=== PATIENT | female | born 1945 | race Caucasian/White ===

== ENCOUNTER → 2016-09-28 | Outpatient (CLI) | payer OTHER, MEDICARE ==
[~2016-09-28] MED LIST: GADOBUTROL 10 ML VIAL IVP ONE
--- NOTE | 2016-09-28 18:01 | MR ---
MRI Lumbar Spine Without and With IV Contrast dated September 28, 2016 Indication: Pain. Previous fusion. Comparison: MRI lumbar spine dated December 09, 2015 and lumbar spine flexion-extension series dated Aug. Technique: Sagittal T2, T1, STIR, and T1 postcontrast fat suppression. Stacked axial T2 and T1 withou t and with contrast sequences are obtained from T12 through S1. 4 mL of Gadavist was uneventfully int ravenously administered. The dose was reduced by Dr. Locke, given the patient's calculated GFR of 4 4. Findings: The lumbar spine is anatomically aligned. Diskogenic Modic changes at the L2-L3 level poste riorly have increased. The L3-L4 and L4-L5 vertebral bodies appear to be at least partially osseous f used. The left unilateral posterior fusion construct extending from L3 to L5 results in minimal artif act of the neural foramen. No postoperative fluid collection. The abdominal aorta is normal in calibe r. The conus medullaris resides at T12-L1. The nerve roots appear tethered at the L2-L3 level by the bro ad-based disk bulge. The nerve rootlets are drawn straight and taut at the L1 and L2 levels and have smooth undulating redundant course below the level of the disk protrusion. No abnormal enhancement of the conus or the leptomeninges. T12-L1: Widely patent central canal and neural foramina. Minimal disk desiccation and minimal posteri or disk bulge combined with facet hypertrophy and ligamentum flavum thickening is unchanged. L1-L2: Minimal central canal narrowing due to minimal posterior disk bulge, ligamentum flavum and fac et hypertrophy is unchanged. The neural foramina are widely patent. L2-L3: The diffuse broad-based disk protrusion, resulting in severe central canal narrowing, slightly worse off to the right since November 2015. The thecal sac measures 4 to 5 mm AP. No cerebral spinal fl uid surrounds the compressed nerve rootlets. Moderate left and mild to moderate right neural foramina l narrowing are unchanged. L3-L4: Previous diskectomy. Central canal is widely patent. Minimal residual right posterolateral dis k material is unchanged and results in no significant central canal or neural foraminal narrowing. L4-L5: Minimal residual right posterolateral disk bulge with T2 hyperintense annulus tear is unchange d. The central canal and left neural foramina are widely patent. Mild right neural foraminal narrowin g is unchanged. L5-S1: A minimal diffuse broad-based posterior disk bulge with associated T2 hyperintense annulus tea r is unchanged resulting in minimal central canal narrowing and mild bilateral neural foraminal narro wing. Impression: 1. Severe central canal narrowing at L2-L3 level, due to a diffuse broad-based disk protrusion, is sl ightly worse resulting in tethering of the nerve rootlets at this level. Although the radiographs renetta w no instability in August 2016, there is increased diskogenic Modic changes suggesting movement at this level. 2. No new disk herniation. 3. Left unilateral posterior fusion construct extending from L3-L5 appears to be undergoing progressi ve bony fusion.
--- NOTE | 2016-09-28 19:13 | MR ---
MRI Cervical Spine, Without Contrast, dated September 28, 2016 Indication: Pain. Previous fusion. Technique: Sagittal T2, T1, and STIR-weighted sequences as well as stacked axial T2-weighted imaging from the foramen magnum through the T1 level. Comparison: MRI cervical spine dated April 27, 2015. Findings: The C3 through C7 vertebral bodies are completely osseous fused. An anterior plate and tr ansvertebral screws extending from C3 to C5 are unchanged resulting in minimal artifact. 3 mm of ant erolisthesis of C7 on T1 resulting in minimal central canal narrowing is unchanged. Bone marrow sign al is normal. No paraspinal soft tissue swelling. The cervicooccipital junction is normal. The spi nal cord has normal caliber and signal. C2-C3: Minimal disk desiccation, unchanged. The central canal and neural foramina are widely patent . C3-C4: No residual disk. The central canal is widely patent. Facet hypertrophy resulting in minima l bilateral neural foraminal narrowing is unchanged. C4-C5: No residual disk. The central canal is widely patent. Facet hypertrophy results in moderate to severe left neural foraminal narrowing (not significantly changed given differences in technique and artifact). The right neural foramen is widely patent. C5-C6: No residual disk. Minimal central canal narrowing, unchanged. Mild bilateral neural foramin al narrowing due to facet hypertrophy and uncovertebral spurs is unchanged. C6-C7: No residual disk. Mild central canal narrowing due to facet hypertrophy is unchanged. C7-T1: Grade 1 anterolisthesis of C7 on T1 and minimal posterior disk bulge results in no central ca nal or neural foraminal narrowing. T1-T2: Minimal posterior disk bulge on the sagittal imaging results in unchanged mild central canal narrowing. Impression: 1. Complete osseous fusion of the C3 through C7 vertebral bodies is unchanged. 2. No significant central canal narrowing or new disk herniation has developed at any level. 3. Moderate to severe neural foraminal narrowing on the left at C4-C5 is unchanged. 4. Mild diffuse broad-based disk bulge at T1-T2, resulting in mild central canal narrowing, is uncha nged. E:amm
--- NOTE | 2016-09-28 19:19 | DX ---
Cervical Spine With Flexion and Extension, 4 Views History: Neck pain. M51.36, M47.12. Findings: Compare September 24, 2013. Anterior cervical locking plate and interlocking screws at C3, C4, and C5 are intact and in good position. Opaque markers of intervertebral grafts remain at C3-C4 and C4-C5. Mature bony fusion is noted anteriorly at C5-C6 and C6-C7. The interspace at C7-T1 is obscured . Flexion and extension views suggest restricted range of motion as expected for the multilevel fusio n. There is no evidence of excessive motion at C1-C2 or C2-C3. Impression: Mature anterior fusions from C3 through C7.
== END ==
LOC: FIMAGING 12:12
PROVIDERS: ATTEND Physician Assistant Surgical
DX: M43.13 Spondylolisthesis, cervicothoracic region (principal); M99.71 Connective tissue and disc stenosis of intervertebral foramina of cervical region; M47.12 Other spondylosis with myelopathy, cervical region; M48.06 Spinal stenosis, lumbar region; M51.36 Other intervertebral disc degeneration, lumbar region; Z98.1 Arthrodesis status
CPT/HCPCS: 72050; 72141; 72158; A9585

== ENCOUNTER → 2016-11-15 | Outpatient (CLI) | payer OTHER, MEDICARE | LOC: FIMAGING 10:05 | PROVIDERS: ATTEND Physical Medicine & Rehabilitation Pain Medicine | DX: M79.601 Pain in right arm (principal) ==

== ENCOUNTER → 2016-11-18 | Outpatient (CLI) | payer OTHER, MEDICARE | LOC: FIMAGING 08:40 | PROVIDERS: ATTEND Physician Assistant Surgical | DX: M54.12 Radiculopathy, cervical region (principal); Z98.1 Arthrodesis status ==

== ENCOUNTER → 2016-12-06 | Outpatient (CLI) | payer OTHER, MEDICARE | LOC: CIMAGING 10:32 | DX: Z12.31 Encounter for screening mammogram for malignant neoplasm of breast (principal) | CPT/HCPCS: G0202 ==

== ENCOUNTER → 2016-12-18 | Outpatient (CLI) | payer OTHER, MEDICARE | LOC: CIMAGING 13:58 | DX: Z12.39 Encounter for other screening for malignant neoplasm of breast (principal); N60.02 Solitary cyst of left breast | CPT/HCPCS: 76641-PO ==

== ENCOUNTER 2016-12-28 05:32 | Inpatient (IN) | payer OTHER, MEDICARE ==
[2016-12-15 11:06] LABS: % IMMATURE GRANULYOCYTES 0.2 % (0.0-1.1); ABSOLUTE IMMATURE GRANULOCYTES 0.01 10^3/uL (0.00-0.10); ADD DIFF? NO; ADD MORPH? NO; ADD SCAN? NO; ATYPICAL LYMPHOCYTE FLAG 0 (0-99); FRAGMENT RBC FLAG 0 (0-99); HEMATOCRIT 43.8 % (38.0-47.0); HEMOGLOBIN 14.2 g/dL (12.6-16.3); LEFT SHIFT FLG 0 (0-99); LIPEMIA HEMOLYSIS FLAG 80 (0-99); MEAN CELL HEMOGLOBIN 30.6 pg (27.9-34.1); MEAN CELL HEMOGLOBIN CONCENTR. 32.4 g/dL (32.4-36.7); MEAN CELL VOLUME 94.4 fL (81.5-99.8); MEAN PLATELET VOLUME 10.5 fL (8.7-11.7); PLATELET CLUMPS FLAG 0 (0-99); PLATELET COUNT 222 10^3/uL (150-400); RED BLOOD CELL COUNT 4.64 10^6/uL (4.18-5.33); RED CELL DISTRIBUTION WIDTH 13.2 % (11.5-15.2)
[2016-12-15 11:25] LABS: ANION GAP 10 mEq/L (8-16); CALCIUM 8.9 mg/dL (8.5-10.4); CARBON DIOXIDE 27 mEq/l (22-31); CHLORIDE 106 mEq/L (97-110); CREATININE 1.1 mg/dL (0.6-1.0); GLOMERULAR FILTRATION RATE 49; GLUCOSE 148 mg/dL (70-100); POTASSIUM 4.3 mEq/L (3.5-5.2); SODIUM 143 mEq/L (134-144)
[2016-12-28] MEDS ORDERED: LIDOCAINE 1% 5 ML SDV ID PRN (06:15)
[2016-12-28] MEDS ORDERED: LR 1,000 ML IV ONE (06:15)
[2016-12-28] MEDS ORDERED: THROMBIN (BOVINE) 5,000 UNIT VIAL TP ONE (06:35)
[2016-12-28] MEDS ORDERED: BUPIVACAINE 0.25% 30 ML SDV ONE (06:35)
[2016-12-28] MEDS ORDERED: BUPIVACAINE/EPI 0.25% 30 ML SDV ONE (06:36)
[2016-12-28] MEDS ORDERED: BACITRACIN 50,000 UNITS/10 ML SYR IRR ONE (06:36)
[2016-12-28] MEDS ORDERED: MIDAZOLAM 2 MG/2 ML VIAL ONE (07:00)
[2016-12-28] MEDS ORDERED: KETAMINE 100 MG/10 ML SYR IVP ONE (07:19)
[2016-12-28] MEDS ORDERED: PROPOFOL/EMULSION 500 MG/50 ML BOTTLE IV ONE (07:19)
[2016-12-28] MEDS ORDERED: fentaNYL 100 MCG/2 ML INJ ONE ×4 (07:19→11:15)
[2016-12-28] MEDS ORDERED: PROPOFOL 200 MG/20 ML VIAL ONE ×2 (07:19→10:25)
[2016-12-28] MEDS ORDERED: REMIFENTANIL HCL 1 MG VIAL ONE (07:19)
[2016-12-28] MEDS ORDERED: ceFAZolin 2 GM/DEXTROSE 100 ML IV ONE (08:00)
[2016-12-28] MEDS ORDERED: DEXAMETHASONE 10 MG/ML VIAL IVP ONE (08:00)
[2016-12-28] MEDS ORDERED: fentaNYL 100 MCG/2 ML INJ IT ONE (08:00)
[2016-12-28] MEDS ORDERED: morphINE PF 5 MG/10 ML INJ IT ONE (08:00)
[2016-12-28] MEDS ORDERED: CITRATE DEXTROSE SOLN 500 ML BAG ONE (08:17)
[2016-12-28] MEDS ORDERED: morphINE PF 10 MG/10 ML INJ ONE (09:14)
[2016-12-28] MEDS ORDERED: ALBUTEROL 60 PUFFS/8 GM MDI IH PRN (10:30)
[2016-12-28] MEDS ORDERED: IPRATROPIUM/ALBUTEROL 3 ML DEYVIAL IH PRN (10:30)
[2016-12-28] MEDS ORDERED: LACTULOSE 20 GM/30 ML UDCUP PO PRN (10:31)
[2016-12-28] MEDS ORDERED: HYDROmorphONE/DILAUDID 1 MG/ML SYR IVP PRN (10:31)
[2016-12-28] MEDS ORDERED: ACETAMINOPHEN 325 MG TAB PO PRN (10:31)
[2016-12-28] MEDS ORDERED: ONDANSETRON 4 MG/2 ML VIAL IVP PRN (10:31)
[2016-12-28] MEDS ORDERED: HYDROmorphONE/DILAUDID 6 MG/30 ML PCA IV PRN (10:31)
[2016-12-28] MEDS ORDERED: diphenhydrAMINE 25 MG CAP PO PRN (10:31)
[2016-12-28] MEDS ORDERED: MAGNESIUM HYDROXIDE 30 ML UDCUP PO PRN (10:31)
[2016-12-28] MEDS ORDERED: BISACODYL 10 MG SUPP PR PRN (10:31)
[2016-12-28] MEDS ORDERED: NALOXONE HCL 0.4 MG/ML INJ IVP PRN (10:31)
[2016-12-28] MEDS ORDERED: DIAZEPAM 10 MG/2 ML SYR IVP PRN (10:31)
[2016-12-28] MEDS ORDERED: ONDANSETRON DISINTEGRATING 4 MG TAB PO PRN (10:31)
[2016-12-28] MEDS ORDERED: DIAZEPAM 5 MG TAB PO PRN (10:31)
[2016-12-28] MEDS ORDERED: NS W/ 20 KCl/L 1,000 ML IV SCH (10:45)
[2016-12-28] MEDS ORDERED: HYDROmorphONE/DILAUDID 1 MG/ML SYR ONE ×2 (10:48→11:15)
--- NOTE | 2016-12-28 12:12 | SOAPPROG ---
SOAP Progress Note Assessment/Plan: Assessment: 71 yo F sp hardware removal L3-5, L2-4 instrumentation with L2/3 TLIF Plan: stable hob flat for 6 hours since patient was leaking from insertion site of intrathecal narcs PT/OT scd/luly/lovenox for dvt prophylaxis please call with neuro changes 12/28/16 12:10 Subjective: + back pain, no leg pain, no weakness. Objective: Vital Signs Temp Pulse Resp BP Pulse Ox 14 119/65 90 L 12/28/16 11:46 12/28/16 11:46 12/28/16 11:46 Laboratory Results 12/15/16 10:39 12/15/16 10:39 AAOx4, +FC PERRL, EOMI, no facial droop Gui x 4 + light touch C/D/I ICD10 Worksheet Patient Problems: Problems Problem Status Onset Fusion of spine of lumbar region Acute Fusion of lumbar spine Acute - ICD10 Problem Qualifiers (1) Fusion of spine of lumbar region
--- NOTE | 2016-12-28 12:55 | GOP ---
[f rep st] OPERATIVE REPORT DATE OF OPERATION: 12/28/2016 SURGEON: Shawn Hinkle MD [employer] OPERATOR: Lew Cheatham PA.-C. ANESTHESIA: General endotracheal. PREOPERATIVE DIAGNOSIS: 1. Severe adjacent level degeneration and spinal stenosis at L2-3 status post a prior L3 through L5 decompression and stabilization with instrumentation. 2. Intractable low back pain and left greater than right lower extremity radicular discomfort. 3. Neurogenic claudication. 4. Failed conservative care. 5. High risk surgical candidate given age, comorbidities, and required surgical intervention. POSTOPERATIVE DIAGNOSIS: 1. Severe adjacent level degeneration and spinal stenosis at L2-3 status post a prior L3 through L5 decompression and stabilization with instrumentation. 2. Intractable low back pain and left greater than right lower extremity radicular discomfort. 3. Neurogenic claudication. 4. Failed conservative care. 5. High risk surgical candidate given age, comorbidities, and required surgical intervention. PROCEDURE PERFORMED: 1. Exploration of spinal fusion. 2. Removal of posterior segmental (pedicle screw and axle device) fixation at L3 through L5. 3. Right-sided L2-3 far lateral transpedicular decompression with L2 through L5 placement of rn or lvn ior segmental (pedicle screw) fixation and posterolateral fusion at L2 through L4. 4. Exploration of spinal fusion at L4-5. 5. L2-3 posterior/transforaminal lumbar interbody fusion with 2 structural PEEK interbody spacers, local autograft and bone morphogenic protein. 6. Use of intraoperative microscopy, fluoroscopy, and computer volumetric stereotactic navigation w ith intraoperative neurophysiologic testing. 7. Injection of intrathecal narcotic analgesics and subcutaneous and intramuscular local anesthesia for postoperative pain control. FINDINGS: ESTIMATED BLOOD LOSS: 150 cc. INDICATIONS: The patient is a 71-year-old woman with a history of an L3 to L5 instrumented decompre ssion, fusion, and stabilization. She has severe adjacent level degeneration and spinal stenosis at the L2-3 level, severe lateral recess and neural foraminal stenosis as well. She has failed extens afshin conservative care and presents with severe low back and leg pain for removal and replacement of instrumentation and extension of the fusion and decompression. DESCRIPTION OF PROCEDURE: After informed consent was obtained, the patient was taken to the operati ng room and placed in the prone position on the Billy table. The lumbosacral area was prepped and draped in a sterile fashion. After fluoroscopic localization of the correct level, the subcutaneou s and intramuscular tissues were infiltrated with local anesthesia. A midline linear incision was t hen created over the L2 through 5 spinous processes. This was carried down the fascial layer, which was incised using monopolar electrocautery and carried in a subperiosteal plane along the spinous p rocesses and lamina bilaterally. Intraoperative fluoroscopy was then utilized to verify the correct levels. Following this, the old instrumentation was identified and carefully removed at L3 thru L5 . The microscope was then brought in, and under high-power microscopic visualization, a right-sided far lateral transpedicular decompression was performed at the L2-3 level with complete unroofing of the facet joint and neural foramen and also angling the microscope across midline for a left-sided decompression while preserving the spinous processes. A redo right-sided posterior hemilaminectomy and foraminotomy was performed at the L3-4 level in order to ensure the symptoms coming from there. Following adequate decompression, the picsell neuronavigational system was brought in, and using LiveBuzzuter volumetric stereotactic navigation, pedicle screws were placed at L2, L3, and L4 bilaterally. Each individual screw was tested neurophysiologically with monopolar electrostimulation and interp retation of the potentials by the surgeon. Following verification of good position of the screws, r ods were placed and secured under distraction across the L2-3 interspace during which time an extens afshin diskectomy was performed with preparation of the endplates and placement of two 7 mm structural PEEK interbody spacers, local autograft, and bone morphogenic protein for an L2-3 posterior/transfor aminal lumbar interbody fusion. The screw and sebastien systems were then placed in a slight amount of co mpression across the L2-3 interspace and locked into the L3-4 as well. Following re-verification of good position of the screws, rods, and interbody spacers using biplanar fluoroscopy, the wound was further copiously irrigated and meticulous hemostasis was achieved. The remaining lamina and facet joints were then extensively decorticated from L2 through L4, and the residual local autograft from the facetectomies and bone morphogenic protein was placed out laterally for posterolateral fusion fr om L2 through L4. The L4-5 interspace was again explored and inspected and noted to be a solid fusi on. After placing the posterolateral bone graft, 200 mcg of Duramorph along with 50 mcg of fentanyl were injected intrathecally. There was a small amount of CSF drainage from where the needle had be en inserted, and some Gel-Foam was placed over this after soaking in blood. No further CSF was iden tified. A drain was then placed in the posterolateral area and copiously irrigated with antibiotic irrigation. After placing the drain, the wound was closed in a layered fashion using interrupted Vi cryl sutures followed by Dermabond on the skin. COMPLICATIONS: None. DISPOSITION: The patient was extubated and transferred to the recovery room in stable condition. /[id number]/MODL
[2016-12-28] MEDS: HYDROmorphONE/DILAUDID 2 MG TAB PO PRN ×2 (13:14→20:24)
--- NOTE | 2016-12-28 14:54 | GCON ---
[f rep st] CONSULTATION DATE OF CONSULTATION: 12/28/2016 REFERRING PHYSICIAN: Shawn Hinkle MD REASON FOR CONSULTATION: Medical evaluation. HISTORY OF PRESENT ILLNESS: The patient is a 71-year-old female presenting to the hospital today fo r a scheduled hardware removal at L3-L5 and L2-L4 instrumentation with L2-L3 TLIF. We were asked to consult on the patient in the postoperative setting to assist with her chronic medical problems. T he patient denies any nausea, vomiting, or diarrhea. Denies any fever, sweats, or night chills. Sh lucien does state that she is having 5/10 pain in the postoperative setting but has no other specific com plaints at this time. She is lying flat during my examination secondary to leaking from insertion s ite of intrathecal narcotics which will be managed by Neurosurgery. REVIEW OF SYSTEMS: Comprehensive 10-point review of systems is negative other than noted in HPI. PAST MEDICAL HISTORY: Significant for: 1. Depression. 2. Chronic kidney disease. 3. Diabetes mellitus. 4. Reactive airway disease. 5. Hypertension. 6. Hypothyroidism. 7. Lumbar spine stenosis. PAST SURGICAL HISTORY: Back surgery. FAMILY HISTORY: Reviewed and noncontributory. SOCIAL HISTORY: The patient denies any tobacco use. She denies any alcohol or illicit drugs. She lives independently with her . ALLERGIES: Adhesive tape, Demerol, metformin, Augmentin, azithromycin, Keflex, clindamycin, Flagyl, naproxen, Darvocet, Bactrim, tetracycline, codeine, Vicodin, morphine, Percocet, sulfa antibiotics. MEDICATIONS: Requip, Glucotrol, Ambien, Zocor, Paxil, Toprol-XL, Robaxin, Synthroid, DuoNeb, Dilaud id, Wellbutrin, albuterol, Tylenol. PHYSICAL EXAMINATION: GENERAL: The patient is alert and oriented in no acute distress. VITAL SIGN S: Afebrile at 37.2, pulse is 80, respiratory rate is 18, blood pressure is 120/67. She is saturat ing 93% on 4 L. HEENT: Normocephalic, atraumatic. Mucosal membranes are moist. Pupils equal, rou nd, reactive to light. RESPIRATORY: Lungs are decreased in the bases bilaterally. No rhonchi or w heezes appreciated. CARDIOVASCULAR: S1, S2. No gallop or murmur noted. GASTROINTESTINAL/ABDOMEN: Bowel sounds are positive. Soft and nontender. There is no guarding or rigidity appreciated. EXT REMITIES: Within normal limits. There is no clubbing or cyanosis noted. No pedal edema identified . Patient is lying flat during my exam. NEUROLOGICAL: The patient is focally intact. LABORATORY EVALUATION: Glucose 163. ASSESSMENT AND PLAN: The patient is a 71-year-old female admitted postoperatively secondary to a sc heduled lumbar surgery. We will follow for medical problems. 1. Hypertension: We will continue the patient's previously prescribed home medications. Her blood pressure is stable at the time of this dictation. 2. Diabetes mellitus: We will continue her previously prescribed home diabetic medications and chadd l initiate sliding scale insulin if needed during this acute stressful situation. 3. Hypothyroidism: Her home medications will be continued. There is no need for further evaluatio n. 4. Chronic kidney disease: Her creatinine has not been evaluated in the postoperative setting. He r baseline is 1.1-1.2. We will recheck her laboratory value in the morning and make recommendations as needed. 5. History of depression: Her home medications have been continued. 6. History of reactive airway disease: We will continue to monitor this and provide her albuterol as needed. 7. Deep venous thrombosis prophylaxis: This will be deferred to Neurosurgery for their recommendat ions. We will follow along with this woman's hospitalization and appreciate the consultation. I reviewed the patient's care with Lew Cheatham of neurosurgery. /[id number]/MODL
[2016-12-28] MEDS: POLYETHYLENE GLYCOL 3350 17 GM PKT PO SCH ×2 (16:35→20:26)
[2016-12-28] MEDS: METHOCARBAMOL 750 MG TAB PO PRN ×2 (17:33→21:24)
[2016-12-28] MEDS: glipiZIDE 5 MG TAB PO SCH (20:17)
[2016-12-28] MEDS: ZOLPIDEM TARTRATE 5 MG TAB PO SCH (20:17)
[2016-12-28] MEDS: ATORVASTATIN CALCIUM 20 MG TAB PO SCH (20:18)
[2016-12-28] MEDS: METOPROLOL SUCCINATE XR 25 MG TAB PO SCH (20:18)
[2016-12-28] MEDS: buPROPion XL 150 MG TAB PO SCH (20:20)
[2016-12-28] MEDS: FAMOTIDINE 20 MG/NACL 50 ML IV SCH (20:25)
[2016-12-28] MEDS: METHOCARBAMOL 750 MG TAB PO SCH (20:25)
[2016-12-28] MEDS: SENNOSIDES/DOCUSATE SODIUM TAB PO SCH (20:26)
[2016-12-28] MEDS ORDERED: NON-FORMULARY NEW DRUG (Simvastatin [Zocor] 40 MG) PO SCH (21:00)
[2016-12-28] MEDS ORDERED: NON-FORMULARY NEW DRUG (Bupropion Hcl [Wellbutrin Xl] 300 MG) PO SCH (21:00)
[2016-12-29] MEDS: METHOCARBAMOL 750 MG TAB PO PRN ×3 (03:19→16:15)
[2016-12-29 05:05] LABS: % IMMATURE GRANULYOCYTES 0.4 % (0.0-1.1); ABSOLUTE IMMATURE GRANULOCYTES 0.03 10^3/uL (0.00-0.10); ADD DIFF? NO; ADD MORPH? NO; ADD SCAN? NO; ATYPICAL LYMPHOCYTE FLAG 0 (0-99); FRAGMENT RBC FLAG 0 (0-99); HEMATOCRIT 36.4 % (38.0-47.0); HEMOGLOBIN 11.5 g/dL (12.6-16.3); LEFT SHIFT FLG 50 (0-99); LIPEMIA HEMOLYSIS FLAG 80 (0-99); MEAN CELL HEMOGLOBIN 30.1 pg (27.9-34.1); MEAN CELL HEMOGLOBIN CONCENTR. 31.6 g/dL (32.4-36.7); MEAN CELL VOLUME 95.3 fL (81.5-99.8); MEAN PLATELET VOLUME 10.6 fL (8.7-11.7); PLATELET CLUMPS FLAG 0 (0-99); PLATELET COUNT 196 10^3/uL (150-400); RED BLOOD CELL COUNT 3.82 10^6/uL (4.18-5.33); RED CELL DISTRIBUTION WIDTH 12.8 % (11.5-15.2)
[2016-12-29 05:11] LABS: ANION GAP 6 mEq/L (8-16); CALCIUM 8.8 mg/dL (8.5-10.4); CARBON DIOXIDE 27 mEq/l (22-31); CHLORIDE 108 mEq/L (97-110); GLOMERULAR FILTRATION RATE 55; GLUCOSE 134 mg/dL (70-100); POTASSIUM 4.9 mEq/L (3.5-5.2); SODIUM 141 mEq/L (134-144)
[2016-12-29] MEDS: LEVOTHYROXINE 112 MCG TAB PO SCH (05:41)
[2016-12-29] MEDS: HYDROmorphONE/DILAUDID 2 MG TAB PO PRN ×3 (05:41→15:11)
--- NOTE | 2016-12-29 07:26 | SOAPPROG ---
SOAP Progress Note Assessment/Plan: Assessment: POD #1 s/p L3-5 hardware removal and L2-4 instrumentation with L2/3 TLIF DESTINY Not to suction No BARKLEY with HOB up pain currently well controlled Plan: Pain control as intrathecal narcotics wear off DESTINY not to bulb suction PT/OT as tolerated in brace xrays today 12/29/16 07:23 Subjective: awake, alert, doing well currently with good pain control Objective: Vital Signs Temp Pulse Resp BP Pulse Ox 36.9 C 79 16 113/64 97 12/29/16 03:24 12/29/16 03:24 12/29/16 03:24 12/29/16 03:24 12/29/16 03:24 Laboratory Results 12/29/16 04:32 12/29/16 04:32 12/28/16 12/29/16 12/30/16 05:59 05:59 05:59 Intake Total 2825 Output Total 1700 300 Balance 1125 -300 Neuro: VEGAS, Sens +LT DESTINY: 75ml ICD10 Worksheet Patient Problems: Problems Problem Status Onset Fusion of spine of lumbar region Acute Fusion of lumbar spine Acute
[2016-12-29] MEDS: SENNOSIDES/DOCUSATE SODIUM TAB PO SCH ×2 (08:48→19:34)
[2016-12-29] MEDS: ENOXAPARIN 40 MG/0.4 ML SYR SC SCH (08:49)
[2016-12-29] MEDS: POLYETHYLENE GLYCOL 3350 17 GM PKT PO SCH ×4 (08:49→19:34)
[2016-12-29] MEDS: FAMOTIDINE 20 MG/NACL 50 ML IV SCH (08:49)
--- NOTE | 2016-12-29 17:20 | HOSPPROG ---
Hospitalist Progress Note Assessment/Plan: 71-year-old female post lumbar surgery. We are following medically. Patient is new to me today. Patient has a known history of hypertension diabetes mellitus hypothyroidism and chronic kidney disease. Today the patient has no complaints and says she is feeling well but does have some experience of constipation. -hypertension: She is currently in good control -diabetes mellitus: Glucose is currently in good control a hemoglobin A1c will be ordered -pain management: Patient reports numerous narcotic allergies causing severe nausea she is tolerant of oral Demerol and we will continue that. Fentanyl patch will also be ordered at in an attempt to relieve pain in a long-term basis. She has tolerated fentanyl in the past without severe nausea -hypothyroidism: She is on her outpatient replacement therapy -chronic kidney disease by history: Baseline creatinine is approximately 1 and she is currently at her baseline -constipation: Bowel care protocol will be ordered. Subjective: No complaints other than some back pain and she says it is well controlled approximately 5 to 7/10. She is experiencing constipation. Objective: Vital Signs Temp Pulse Resp BP Pulse Ox 37.2 C 91 18 96/56 L 99 12/29/16 15:51 12/29/16 15:51 12/29/16 15:51 12/29/16 15:51 12/29/16 15:51 Laboratory Results 12/29/16 04:32 12/29/16 04:32 12/28/16 12/29/16 12/30/16 05:59 05:59 05:59 Intake Total 2825 Output Total 1700 300 Balance 1125 -300 - Time Spent With Patient Time Spent with Patient: greater than 35 minutes Time Spent with Patient: Greater than 35 minutes spent on this patients care, greater than 50% of time spent counseling, educating, and coordinating care regarding the above mentioned plan. - Pending Discharge Pending Discharge Within 24 Hours: No Pending Discharge Within 48 Hours: Yes Pending Discharge Date: 12/31/16 Pending Discharge Time: 11:00 - Physical Exam Constitutional: no apparent distress, other (Experiencing low back pain at the site of the surgical procedure) Eyes: PERRL Ears, Nose, Mouth, Throat: moist mucous membranes, hearing normal Cardiovascular: regular rate and rhythym, no murmur, rub, or gallop Respiratory: no respiratory distress, no rales or rhonchi, clear to auscultation Gastrointestinal: normoactive bowel sounds, soft, non-tender abdomen, no palpable masses Genitourinary: no bladder fullness Skin: warm Musculoskeletal: other (Pain in the lumbar region at the surgical site.) Neurologic: AAOx3, CN II-XII Intact ICD10 Worksheet Patient Problems: Problems Problem Status Onset Fusion of spine of lumbar region Acute Fusion of lumbar spine Acute
[2016-12-29] MEDS ORDERED: fentaNYL 25 MCG PATCH TD SCH (17:30)
[2016-12-29] MEDS: FAMOTIDINE 20 MG TAB PO SCH (20:08)
[2016-12-29] MEDS: ATORVASTATIN CALCIUM 20 MG TAB PO SCH (20:08)
[2016-12-29] MEDS: ZOLPIDEM TARTRATE 5 MG TAB PO SCH (20:10)
[2016-12-29] MEDS: glipiZIDE 5 MG TAB PO SCH (20:10)
[2016-12-29] MEDS: buPROPion XL 150 MG TAB PO SCH (20:10)
[2016-12-29] MEDS: METOPROLOL SUCCINATE XR 25 MG TAB PO SCH (20:11)
[2016-12-29] MEDS: METHOCARBAMOL 750 MG TAB PO SCH (22:18)
[2016-12-30] MEDS: LEVOTHYROXINE 112 MCG TAB PO SCH (04:32)
[2016-12-30] MEDS: HYDROmorphONE/DILAUDID 2 MG TAB PO PRN ×2 (04:39→12:59)
[2016-12-30 07:30] VITALS: BP 104/61; PULSE 88; RESP 15; TEMP 99.1; O2SAT 96
[2016-12-30] MEDS: POLYETHYLENE GLYCOL 3350 17 GM PKT PO SCH (07:45)
[2016-12-30] MEDS: SENNOSIDES/DOCUSATE SODIUM TAB PO SCH (07:45)
[2016-12-30] MEDS: METHOCARBAMOL 750 MG TAB PO PRN (08:26)
[2016-12-30] MEDS: FAMOTIDINE 20 MG TAB PO SCH (08:26)
[2016-12-30] MEDS: ENOXAPARIN 40 MG/0.4 ML SYR SC SCH (08:26)
--- NOTE | 2016-12-30 10:29 | NEUSURGPN ---
Assessment/Plan: Assessment: POD #1 s/p L3-5 hardware removal and L2-4 instrumentation with L2/3 TLIF Plan: Pain control as intrathecal narcotics wear off, appreciate medicine help no complaints of headache DESTINY out today PT/OT as tolerated in brace xrays show hardware in good position. dispo planning, home this afternoon hopefully. Subjective: non having any significant pain at this time. has been 8/10 at times. No HAs, pain in legs. pain improved from before surgery. May want to hold off on discharge until tomorrow. Objective: VSS NAD EOMI, no facial droop MAEx4 some weakness noted in right HF compared to left JPx1 5ml overnight INCISION c/d/i. Urinary Catheter in Place: No Catheter Insertion Date: 12/28/16 - Physician Discussed Patient with : [facility] Physical Exam - Vitals, I&O, Labs I and O 12/29/16 12/30/16 12/31/16 05:59 05:59 05:59 Intake Total 2825 1100 Output Total 1700 1130 Balance 1125 -30 Weight 81.647 kg Intake: Oral (ml) 500 1100 IV Intake (ml) 1450 IV Infused (ml) 875 NS W/ 20 KCl/L 1,000 ml @ 775 75 mls/hr IV CONT YOVANA Rx #:[id number] ceFAZolin 1 GM/DEXTROSE 100 50 ml @ 200 mls/hr IV Q8HRS YOVANA Rx#:[id number] Output: Urine (ml) 1425 1125 Bedside Commode 75 Catheter 1425 300 Toilet 750 Estimated Blood Loss (ml) 200 Wound Drainage (ml) 75 5 Back Billy Bennett 75 5 Other: Intake Quantity Yes Yes Sufficient Number of Voids Bedside Commode 1 Toilet 2 Number of Stools Incontinence 1 Toilet 1 Vital Signs Temp Pulse Resp BP Pulse Ox 37.3 C 88 15 104/61 96 12/30/16 07:29 12/30/16 07:29 12/30/16 07:29 12/30/16 07:29 12/30/16 07:29 Laboratory Results 12/29/16 04:32 12/29/16 04:32 ICD10 Worksheet Patient Problems: Problems Problem Status Onset Fusion of spine of lumbar region Acute Fusion of lumbar spine Acute
--- NOTE | 2016-12-30 14:24 | HOSPPROG ---
Hospitalist Progress Note Assessment/Plan: 71-year-old female post lumbar surgery. We are following medically. Patient has a known history of hypertension diabetes mellitus hypothyroidism and chronic kidney disease. Today the patient has no complaints and says she is feeling well but does have some experience of constipation. Patient reports that she has pain at 5 to 7/10 but review of the MAR shows that she is taking minimal p.o. Dilaudid. She decided not to use the fentanyl patch. -hypertension: She is currently in good control -diabetes mellitus: Glucose is currently in good control a hemoglobin A1c will be ordered -pain management: Patient reports numerous narcotic allergies causing severe nausea she is tolerant of oral Demerol and we will continue that. Patient refused to fentanyl patch -hypothyroidism: She is on her outpatient replacement therapy -chronic kidney disease by history: Baseline creatinine is approximately 1 and she is currently at her baseline -constipation: Bowel care protocol will be ordered. Disposition: Patient is function is nearing appropriate levels and she can be discharged in 1-2 days medically she is stable. Pain control remains her only situation of note. Per PT notes the patient is stable for transfer home as soon as we can manage her pain. Subjective: Refer reports she is feeling better and improving each day. She has some dizziness when turning in bed and when moving about with PT. This has been steadily improving. No chest pain nausea vomiting or headache Objective: Vital Signs Temp Pulse Resp BP Pulse Ox 37.3 C 88 15 104/61 96 12/30/16 07:29 12/30/16 07:29 12/30/16 07:29 12/30/16 07:29 12/30/16 07:29 Laboratory Results 12/29/16 04:32 12/29/16 04:32 12/29/16 12/30/16 12/31/16 05:59 05:59 05:59 Intake Total 2825 1100 Output Total 1700 1130 Balance 1125 -30 - Time Spent With Patient Time Spent with Patient: greater than 35 minutes Time Spent with Patient: Greater than 35 minutes spent on this patients care, greater than 50% of time spent counseling, educating, and coordinating care regarding the above mentioned plan. - Pending Discharge Pending Discharge Within 24 Hours: Yes Pending Discharge Date: 12/31/16 Pending Discharge Time: 11:00 - Physical Exam Constitutional: no apparent distress Eyes: PERRL Ears, Nose, Mouth, Throat: moist mucous membranes Cardiovascular: regular rate and rhythym, no murmur, rub, or gallop Respiratory: no respiratory distress, no rales or rhonchi, clear to auscultation Gastrointestinal: normoactive bowel sounds, soft, non-tender abdomen Skin: warm Musculoskeletal: generalized weakness, other (Tenderness at surgical site without signs of infection or drainage.) Neurologic: AAOx3, CN II-XII Intact ICD10 Worksheet Patient Problems: Problems Problem Status Onset Fusion of lumbar spine Acute Fusion of spine of lumbar region Acute
--- NOTE | 2016-12-30 15:49 | PDIAF ---
- Diagnosis Code Status: Full Code - Medication Management Discharge Medications: Medications to Continue on Transfer Metoprolol Succinate Xr [Toprol Xl 25 mg (*)] 12.5 mg PO HS 07/23/15 [Last Taken 12/27/16 20:00] PARoxetine HCL [Paxil 30mg (*)] 30 mg PO HS 07/23/15 [Last Taken 12/27/16] Simvastatin [Zocor] 40 mg PO HS 07/23/15 [Last Taken 12/27/16 20:00] rOPINIRole HCL [Requip 2mg (*)] 2 mg PO BID PRN 07/23/15 [Last Taken 12/27/16 20 :00] Albuterol [Proventil Inhaler HFA (*)] 1 - 2 puffs IH Q4 PRN #1 mdi 08/24/15 [ Last Taken 07/17/16] Ipratropium/Albuterol [Duoneb (*)] 3 ml IH QID PRN #1 deyvial 08/24/15 [Last Taken 08/16/16] Bupropion HCl [Wellbutrin Xl] 300 mg PO HS 12/04/16 [Last Taken 12/27/16 20:00] Levothyroxine [Synthroid 112 mcg (*)] 112 mcg PO DAILY06 12/04/16 [Last Taken ] glipiZIDE [Glucotrol 5 mg] 5 mg PO HS 12/04/16 [Last Taken 12/27/16 20:00] Acetaminophen [Tylenol 325mg (*)] 325 - 650 mg PO Q4HRS PRN #0 tab 12/30/16 [ Last Taken Unknown] HYDROmorphone HCL [Dilaudid 2 mg (*)] 2 mg PO Q4 PRN #60 tab 12/30/16 [Last Taken Unknown] Methocarbamol [Robaxin 750 mg (*)] 750 mg PO HS #0 tab 12/30/16 [Last Taken Unknown] Methocarbamol [Robaxin 750 mg (*)] 750 mg PO QID PRN #0 tab 12/30/16 [Last Taken Unknown] Polyethylene Glycol 3350 [Miralax 17 gm (*)] 17 gm PO TID #0 pkt 12/30/16 [Last Taken Unknown] Sennosides/Docusate Sodium [Senokot-S] 1 - 2 tab PO BID #0 tab 12/30/16 [Last Taken Unknown] Half-Way Antibiotics: no Discharge Medications: Refer to the Discharge Home Medication list for PRN reason. - Orders Services needed: Home Care, Physical Therapy Home Care Face to Face: I certify that this patient was under my care and that I had the required [id number] encounter meeting the encounter requirements on the discharge day. My findings support the fact that the patient is homebound as defined in CMS Chapter 7 Medicare Benefits Manual 30.1.1, The condition of the patient is such that there exists a normal inability to leave home and consequently, leaving home would require a considerable and taxing effort. Diet Recommendation: other (diabetic diet) Diet Texture: Regular Texture Diet Wound Care Instructions: keep dressings dry. no dressings in shower, wound may get wet in shower. no baths or soaking - Follow Up Care Current Providers and Referrals: Shailesh Rider MD [Primary Care Provider] -
--- NOTE | 2017-01-17 16:19 | GDS ---
[f rep st] DISCHARGE SUMMARY ADMISSION DIAGNOSIS: Lumbar degenerative joint disease with stenosis. DISCHARGE DIAGNOSIS: Status post L3-L5 hardware removal, L2-L4 instrumentation and fusion with an L 2-3 transforaminal lumbar interbody fusion. HISTORY AND PHYSICAL: Please see admission history and physical course. Patient is a 71-year-old f emale with a history of a previous fusion. She presented with severe stenosis at L2-3. She was isra en to the operating room on 12/28/2016 when she underwent hardware removal at L3-L5, followed by an L2-L4 instrumentation and L2-3 transforaminal lumbar interbody fusion. There were no intraoperative complications, and she was admitted to the floor for observation. On the floor she was tolerating a regular diet, and her pain was controlled with p.o. pain medications. She was ambulating on her o wn. She was discharged home in stable condition on 12/30/2016. Patient was discharged with lumbar fusion instructions and recommended she return for neurosurgical followup appointment in 10-14 days. /[id number]/MODL
== END 2016-12-30 16:52 | disposition home health service (06) | DRG 460 ==
LOC: F3N 05:32
PROVIDERS: ADMIT Neurological Surgery; ATTEND Neurological Surgery
PROC: 0ST20ZZ Resection of Lumbar Vertebral Disc, Open Approach (ICD-10-PCS; principal; 2016-12-28 07:15)
PROC: 00Q20ZZ Repair Dura Mater, Open Approach (ICD-10-PCS; principal; 2016-12-28 07:15)
PROC: 01NB0ZZ Release Lumbar Nerve, Open Approach (ICD-10-PCS; principal; 2016-12-28 07:15)
PROC: 0SP004Z Removal of Internal Fixation Device from Lumbar Vertebral Joint, Open Approach (ICD-10-PCS; principal; 2016-12-28 07:15)
PROC: 4A1004G Monitoring of Central Nervous Electrical Activity, Intraoperative, Open Approach (ICD-10-PCS; principal; 2016-12-28 07:15)
PROC: 0SG10AJ Fusion of 2 or more Lumbar Vertebral Joints with Interbody Fusion Device, Posterior Approach, Anterior Column, Open Approach (ICD-10-PCS; principal; 2016-12-28 07:15)
PROC: 8E0WXBZ Computer Assisted Procedure of Trunk Region (ICD-10-PCS; principal; 2016-12-28 07:15)
PROC: 00NY0ZZ Release Lumbar Spinal Cord, Open Approach (ICD-10-PCS; principal; 2016-12-28 07:15)
DX: M51.36 Other intervertebral disc degeneration, lumbar region (principal); G97.49 Accidental puncture and laceration of other nervous system organ or structure during other procedure; G25.0 Essential tremor; N18.9 Chronic kidney disease, unspecified; E11.29 Type 2 diabetes mellitus with other diabetic kidney complication; I12.9 Hypertensive chronic kidney disease with stage 1 through stage 4 chronic kidney disease, or unspecified chronic kidney disease; E03.9 Hypothyroidism, unspecified; J45.909 Unspecified asthma, uncomplicated; F32.9 Major depressive disorder, single episode, unspecified; K59.00 Constipation, unspecified; K21.9 Gastro-esophageal reflux disease without esophagitis; Z98.1 Arthrodesis status
CPT/HCPCS: 97116-GP; 97161-GP; 97165-GO; 97530-GP; 97535-GO; C1713; G8978-GP-CI; G8978-GP-CK; G8979-GP-CI; G8980-GP-CI; G8987-GO-CJ; G8988-GO-CI; J0690; J1170; J1650; J2250; J2274; J2704; J3010; J7060

== ENCOUNTER → 2017-04-14 | Outpatient (CLI) | payer OTHER, MEDICARE | LOC: FIMAGING 12:44 | PROVIDERS: ATTEND Neurological Surgery | DX: Z09 Encounter for follow-up examination after completed treatment for conditions other than malignant neoplasm (principal); Z98.1 Arthrodesis status; M51.37 Other intervertebral disc degeneration, lumbosacral region; M46.97 Unspecified inflammatory spondylopathy, lumbosacral region ==

== ENCOUNTER → 2017-04-18 | Outpatient (CLI) | payer OTHER, MEDICARE | LOC: FIMAGING 14:45 | PROVIDERS: ATTEND Physician Assistant Surgical | DX: M79.604 Pain in right leg (principal) ==

== ENCOUNTER → 2017-07-16 | Outpatient (CLI) | payer OTHER, MEDICARE | LOC: FIMAGING 15:35 | PROVIDERS: ATTEND Physician Assistant Surgical | DX: M54.16 Radiculopathy, lumbar region (principal); M43.26 Fusion of spine, lumbar region | CPT/HCPCS: 72110; 72158; A9585 ==

== ENCOUNTER → 2017-07-22 | Outpatient (CLI) | payer OTHER, MEDICARE | LOC: FIMAGING 08:25 | PROVIDERS: ATTEND Physician Assistant Surgical | DX: G25.0 Essential tremor (principal); M51.34 Other intervertebral disc degeneration, thoracic region; M51.24 Other intervertebral disc displacement, thoracic region; M43.04 Spondylolysis, thoracic region; Z98.1 Arthrodesis status ==

== ENCOUNTER → 2017-12-07 | Outpatient (CLI) | payer OTHER, MEDICARE | LOC: BMCIMAGING 13:41 | PROVIDERS: ATTEND Family Medicine | DX: M54.5 Low back pain (principal); Z98.1 Arthrodesis status ==

== ENCOUNTER → 2017-12-13 | Outpatient (CLI) | payer OTHER, MEDICARE | LOC: FIMAGING 15:43 | PROVIDERS: ATTEND Physical Medicine & Rehabilitation Pain Medicine | DX: M24.851 Other specific joint derangements of right hip, not elsewhere classified (principal) ==

== ENCOUNTER → 2018-01-04 | Outpatient (CLI) | payer OTHER, MEDICARE | LOC: CIMAGING 08:54 | PROVIDERS: ATTEND Internal Medicine | DX: Z12.31 Encounter for screening mammogram for malignant neoplasm of breast (principal) ==

== ENCOUNTER → 2018-01-11 | Outpatient (CLI) | payer OTHER, MEDICARE | LOC: FIMAGING 06:40 | PROVIDERS: ATTEND Physical Medicine & Rehabilitation Pain Medicine | DX: M48.061 Spinal stenosis, lumbar region without neurogenic claudication (principal); M51.36 Other intervertebral disc degeneration, lumbar region; M51.26 Other intervertebral disc displacement, lumbar region; M12.88 Other specific arthropathies, not elsewhere classified, other specified site; Z98.1 Arthrodesis status | CPT/HCPCS: 72158; A9585 ==

== ENCOUNTER → 2018-01-28 | Outpatient (CLI) | payer OTHER, MEDICARE | LOC: BMCIMAGING 15:11 | PROVIDERS: ATTEND Internal Medicine | DX: I51.7 Cardiomegaly (principal) ==

== ENCOUNTER → 2018-05-27 | Outpatient (CLI) | payer OTHER, MEDICARE | LOC: FIMAGING 11:38 | PROVIDERS: ATTEND Physical Medicine & Rehabilitation Pain Medicine | DX: M25.559 Pain in unspecified hip (principal) ==

== ENCOUNTER → 2018-06-21 | Outpatient (CLI) | payer OTHER, MEDICARE | LOC: FIMAGING 09:37 | PROVIDERS: ATTEND Neurological Surgery | DX: Z09 Encounter for follow-up examination after completed treatment for conditions other than malignant neoplasm (principal); Z98.1 Arthrodesis status; M51.37 Other intervertebral disc degeneration, lumbosacral region; G25.0 Essential tremor ==

== ENCOUNTER 2018-09-21 10:04 | Inpatient (IN) | payer OTHER, MEDICARE | END 2018-09-26 14:56 | disposition home health service (06) | LOC: F3N 15:37 ==

== ENCOUNTER 2018-10-18 11:54 | Emergency (ER) | payer OTHER, MEDICARE ==
[2018-10-18] MEDS ORDERED: NS 1,000 ML IV ONE ×2 (12:44→13:59)
--- NOTE | 2018-10-18 12:45 | EDPHY ---
H & P Time Seen by Provider: 10/18/18 12:27 HPI/ROS: CHIEF COMPLAINT: Weakness, collapsed to the floor HISTORY OF PRESENT ILLNESS: Patient had spinal fusion surgery T12 through L3 2 weeks ago was going to follow up with her neurosurgeon when she felt like her legs got really weak and they gave out and she collapsed to the floor. She did not have chest pain or shortness of breath and did not injure herself. Currently just feels weak and a little bit dehydrated. She has not been able to eat and drink normally because it weber while swallowing and her mouth has been very dry for the last week. She does not feel lightheaded or dizzy sitting in the bed. REVIEW OF SYSTEMS: Eye: no change in vision ENT: no sore throat Cardiac: no chest pain or syncope Pulmonary: no cough or SOB Abdomen: no vomiting, diarrhea, abdominal pain, decreased oral intake Musculoskeletal: Some postoperative pain but stable Skin: no rash Neuro: no headache Constitutional: no fever : no urinary symptoms A comprehensive 10 point review of systems is otherwise negative aside from elements mentioned in the history of present illness. PAST MEDICAL HISTORY: Includes spinal stenosis with fusion, kidney stones, hypertension, GERD, diabetes. Depression, hypothyroid, hyperlipidemia. Multiple spine surgeries. Social history: Nonsmoker General Appearance: Alert and conversant, cooperative. Eyes: No scleral icterus. ENT, Mouth: Dry mucous membranes. Respiratory: Normal respiratory effort, breath sounds equal, lungs are clear to auscultation. Cardiovascular: Regular rate and rhythm. Gastrointestinal: Abdomen is soft and non tender. Neurological: Alert, face symmetric, normal motor and sensory in extremities. Toes downgoing bilaterally, no clonus, patellar reflexes 1+ and symmetric. Skin: Warm and dry, no rashes. Musculoskeletal: No peripheral edema. Psychiatric: Not agitated Emergency Department course/MDM: Patient clinically looks dry. Saline hydration and CBC chemistry EKG. 1427: Re-evaluated, labs discussed. BUN creatinine and clinical exam all consistent with dehydration. Patient would like to go home if possible. About a L and half of IV normal saline has infused at this time. Plan for road test after 2 L. Encouraged to increase oral fluids at home. 1446: Up ambulatory, with her walker, feels at baseline stability. At this time she would like to go home which I think is reasonable. Smoking Status: Never smoked Constitutional: Initial Vital Signs Temperature (C) 36.7 C 10/18/18 12:13 Heart Rate 81 10/18/18 12:13 Respiratory Rate 16 10/18/18 12:13 Blood Pressure 100/67 10/18/18 12:13 O2 Sat (%) 95 10/18/18 12:13 O2 Delivery Mode Nasal Cannula O2 (L/minute) 2 Allergies/Adverse Reactions: adhesive tape Allergy (Intermediate, Verified 10/18/18 12:13) RED SKIN meperidine HCl [From Demerol] Allergy (Intermediate, Verified 10/18/18 12:13) Vomiting metformin Allergy (Intermediate, Verified 10/18/18 12:13) SEVERE DIARRHEA amoxicillin trihydrate [From Augmentin] Allergy (Mild, Verified 10/18/18 12:13) Rash azithromycin [Azithromycin] Allergy (Mild, Verified 10/18/18 12:13) Rash cephalexin monohydrate [From Keflex] Allergy (Mild, Verified 10/18/18 12:13) Rash clindamycin [Clindamycin] Allergy (Mild, Verified 10/18/18 12:13) Rash metronidazole [From Flagyl] Allergy (Mild, Verified 10/18/18 12:13) Rash Metronidazole HCl [From Flagyl] Allergy (Mild, Verified 10/18/18 12:13) Rash naproxen [Naproxen] Allergy (Mild, Verified 10/18/18 12:13) STOMACH PAIN, NAUSEA potassium clavula *RETIRED-05/27/12 [From Augmentin] Allergy (Mild, Verified 10/05 12:13) Rash propoxyphene napsylate [From Darvocet-N 100] Allergy (Mild, Verified 10/18/18 12 :13) VOMIT sulfamethoxazole [From Bactrim] Allergy (Mild, Verified 10/18/18 12:13) Rash sulindac [From Clinoril] Allergy (Mild, Verified 10/18/18 12:13) STOMACH PAIN, NAUSEA tetracycline [Tetracycline] Allergy (Mild, Verified 10/18/18 12:13) Rash trimethoprim [From Bactrim] Allergy (Mild, Verified 10/18/18 12:13) VOMIT codeine Allergy (Verified 10/18/18 12:13) Vomiting hydrocodone bitartrate [From Vicodin] Allergy (Verified 10/18/18 12:13) Vomiting morphine Allergy (Verified 10/18/18 12:13) delirium, paranoia, oxycodone HCl [From Percocet] Allergy (Verified 10/18/18 12:13) Vomiting Sulfa (Sulfonamide Antibiotics) Allergy (Verified 10/18/18 12:13) Rash Home Medications: Medication Instructions Recorded PARoxetine HCL [Paxil 30mg (*)] 30 mg PO DAILY 07/23/15 Simvastatin [Zocor] 40 mg PO HS 07/23/15 rOPINIRole HCL [Requip 2mg (*)] 2 mg PO TID PRN 07/23/15 Albuterol [Proventil Inhaler HFA 1 - 2 puffs IH Q4 PRN #1 mdi 08/24/15 (*)] Bupropion HCl [Wellbutrin Xl] 300 mg PO DAILY 12/04/16 Levothyroxine [Synthroid 112 mcg 112 mcg PO DAILY06 12/04/16 (*)] glipiZIDE [Glucotrol 5 mg] 5 mg PO DAILY 12/04/16 Acetaminophen [Tylenol 325mg (*)] 325 - 650 mg PO Q4HRS PRN #0 tab 12/30/16 Albuterol [Proventil Neb] 3 ml IH QID PRN 09/21/18 Carvedilol 12.5 mg PO BIDMEAL 09/21/18 Spironolactone [Aldactone 25 MG 25 mg PO DAILY 09/21/18 (*)] traZODone [traZODONE 50MG (*)] 75 mg PO HS 09/21/18 Propylene Glycol/Peg 400 [SYSTANE 1 drop OP BID PRN 09/25/18 0.3-0.4% EYE DROPS] Fluticasone Nasal [Flonase Nasal 2 sprays EACHNARE DAILY #1 mdi 09/26/18 [place]] Gabapentin [Neurontin 300 MG (*)] 300 mg PO TID #90 cap 09/26/18 HYDROmorphone HCL [Dilaudid 2 mg 2 mg PO Q4HRS PRN #25 tab 09/26/18 (*)] Lidocaine 4%/Menthol 1% [Icy Hot 1 patch TD DAILY #7 patch 09/26/18 Lidocaine/Menthol 4%/1% Patch (*)] Oxymetazoline HCl [Afrin Nasal 1 sprays EACHNARE DAILY #1 bottle 09/26/18 [place]] Medical Decision Making - Diagnostics EKG Interpretation: 12-lead EKG interpreted by me; official reading is in computer system. My interpretation is sinus rhythm rate 72 with early RS transition and low voltage. Differential Diagnosis: Differential considered including but not limited to spinal cord problem, dysrhythmia or arrhythmia, dehydration, metabolic abnormality. - Data Points Laboratory Results: Laboratory Results 10/18/18 12:58 10/18/18 12:58 10/18/18 10/18/18 10/18/18 13:03 12:58 12:58 WBC 9.74 10^3/uL H 10^3/uL (3.80-9.50) RBC 4.39 10^6/uL 10^6/uL (4.18-5.33) Hgb 14.2 g/dL g/dL (12.6-16.3) Hct 43.5 % % (38.0-47.0) MCV 99.1 fL fL (81.5-99.8) MCH 32.3 pg pg (27.9-34.1) MCHC 32.6 g/dL g/dL (32.4-36.7) RDW 12.4 % % (11.5-15.2) Plt Count 186 10^3/uL 10^3/uL (150-400) MPV 10.2 fL fL (8.7-11.7) Neut % (Auto) 72.4 % % (39.3-74.2) Lymph % (Auto) 17.0 % % (15.0-45.0) Gem % (Auto) 7.6 % % (4.5-13.0) Eos % (Auto) 2.1 % % (0.6-7.6) Baso % (Auto) 0.4 % % (0.3-1.7) Nucleat RBC Rel Count 0.0 % % (0.0-0.2) Absolute Neuts (auto) 7.05 10^3/uL H 10^3/uL (1.70-6.50) Absolute Lymphs (auto) 1.66 10^3/uL 10^3/uL (1.00-3.00) Absolute Monos (auto) 0.74 10^3/uL 10^3/uL (0.30-0.80) Absolute Eos (auto) 0.20 10^3/uL 10^3/uL (0.03-0.40) Absolute Basos (auto) 0.04 10^3/uL 10^3/uL (0.02-0.10) Absolute Nucleated RBC 0.00 10^3/uL 10^3/uL (0-0.01) Immature Gran % 0.5 % % (0.0-1.1) Immature Gran # 0.05 10^3/uL 10^3/uL (0.00-0.10) Sodium 136 mEq/L mEq/L (135-145) Potassium 4.9 mEq/L mEq/L (3.5-5.2) Chloride 104 mEq/L mEq/L (97-110) Carbon Dioxide 23 mEq/l mEq/l (22-31) Anion Gap 9 mEq/L mEq/L (6-14) BUN 43 mg/dL H mg/dL (7-23) Creatinine 1.4 mg/dL H mg/dL (0.6-1.0) Estimated GFR 37 Glucose 281 mg/dL H mg/dL (70-100) Calcium 9.5 mg/dL mg/dL (8.5-10.4) POC Troponin I 0.08 ng/mL ng/mL (0.00-0.08) Medications Given: Discontinued Medications Sodium Chloride (Ns) 1,000 mls @ 0 mls/hr IV EDNOW ONE; Wide Open PRN Reason: Protocol Stop: 10/18/18 12:45 Last Admin: 10/18/18 13:00 Dose: 1,000 mls Sodium Chloride (Ns) 1,000 mls @ 0 mls/hr IV EDNOW ONE; Wide Open PRN Reason: Protocol Stop: 10/18/18 14:00 Last Admin: 10/18/18 14:05 Dose: 1,000 mls Point of Care Test Results: Chemistry 10/18/18 13:03 POC Troponin I 0.08 ng/mL ng/mL (0.00-0.08) Departure - Departure Disposition: Home, Routine, Self-Care Clinical Impression: Dehydration Condition: Good Instructions: Dehydration (ED) Referrals: Shailesh Rider MD [Primary Care Provider] - As per Instructions
--- NOTE | 2018-10-18 13:00 | CPEKG ---
Test Reason : OPEN Blood Pressure : / mmHG Vent. Rate : 072 BPM Atrial Rate : 072 BPM P-R Int : 172 ms QRS Dur : 100 ms QT Int : 396 ms P-R-T Axes : 022 012 030 degrees QTc Int : 434 ms Sinus rhythm Low voltage, precordial leads Abnormal R-wave progression, early transition Confirmed by Markie England ([id number]) on 10/18/2018 12:59:56 PM Referred By: MARKIE ENGLAND Confirmed By:Markie England
[2018-10-18 13:17] LABS: PLATELET COUNT 186 10^3/uL (150-400)
[2018-10-18 14:58] VITALS: BP 130/65
--- NOTE | 2018-10-22 14:49 | CPEKG ---
Test Reason : OPEN Blood Pressure : / mmHG Vent. Rate : 072 BPM Atrial Rate : 072 BPM P-R Int : 172 ms QRS Dur : 100 ms QT Int : 396 ms P-R-T Axes : 022 012 030 degrees QTc Int : 434 ms Sinus rhythm Low voltage, precordial leads Abnormal R-wave progression, early transition Confirmed by Oli Figueroa ([id number]) on 10/22/2018 2:48:48 PM Referred By: Jabari Campos Confirmed By:Oli Figueroa
== END 2018-10-18 15:00 | disposition home or self-care (01) ==
DX: E86.0 Dehydration (principal)
CPT/HCPCS: 84484-ER

== ENCOUNTER → 2019-01-06 | Outpatient (CLI) | payer OTHER, MEDICARE | LOC: BMCIMAGING 10:21 | PROVIDERS: ATTEND Orthopaedic Surgery Hand Surgery | DX: M19.012 Primary osteoarthritis, left shoulder (principal) ==

== ENCOUNTER → 2019-01-10 | Outpatient (CLI) | payer OTHER, MEDICARE | LOC: FIMAGING 10:28 | PROVIDERS: ATTEND Physician Assistant Surgical | DX: Z98.1 Arthrodesis status (principal) ==

== ENCOUNTER → 2019-01-15 | Outpatient (CLI) | payer OTHER, MEDICARE | LOC: CIMAGING 14:46 | PROVIDERS: ATTEND Internal Medicine | DX: Z12.31 Encounter for screening mammogram for malignant neoplasm of breast (principal) ==

== ENCOUNTER → 2019-02-07 | Outpatient (CLI) | payer OTHER, MEDICARE | LOC: BMCIMAGING 08:03 | PROVIDERS: ATTEND Physician Assistant | DX: M17.12 Unilateral primary osteoarthritis, left knee (principal) ==

== ENCOUNTER → 2019-02-14 | Outpatient (CLI) | payer OTHER, MEDICARE | LOC: FIMAGING 08:01 ==

== ENCOUNTER → 2019-03-15 | Outpatient (CLI) | payer OTHER, MEDICARE | LOC: FIMAGING 14:30 ==